=== PATIENT | male | born 1995 | race African-American/Black ===

== ENCOUNTER 2024-06-18 17:22 | Inpatient (IN) | payer OTHER, SELFPAY ==
--- NOTE | ~2024-06-18 | US_ITS ---
Limited Abdominal Sonogram: Real-time sonographic imaging of the right upper quadrant was performed. Clinical History: Right upper quadrant pain Findings: The liver appears normal with no evidence of mass lesion or bile duct dilatation. Main por jl vein demonstrates normal direction of flow. The gallbladder is well distended, and appears normal with no evidence of gallstone or wall thickening. The common bile duct measures 7 mm. The visualize d pancreas, aorta, and IVC are unremarkable. Impression: No significant abnormality seen. Reviewed, dictated and finalized at location M. Impression: No significant abnormality seen.
[2024-06-18 18:10] VITALS: BP 135/103; PULSE 79; RESP 18; TEMP 36.9; O2SAT 98
[2024-06-19] VITALS (8 sets, daily range): BP systolic 148–182; BP diastolic 92–126; PULSE 64–79; RESP 14–18; TEMP 36.6–36.9; O2SAT 97–100
--- NOTE | 2024-06-19 01:15 | ED.ABDPAIN ---
HPI - Abdominal Pain General Chief Complaint: Abdominal Pain Stated Complaint: abd pain Time Seen by Provider: 06/19/24 01:10 Source: patient Mode of arrival: ambulatory Limitations: no limitations History of Present Illness HPI narrative: Patient presents with epigastric abdominal pain. States it feels like his previous episodes of pancreatitis which is what he is concerned for. Had previously drank alcohol heavily which had triggered episodes before. Had reduced consumption but recently some family stressors so he drank a few beers and a fifth of liquor. No prior complications such as abscess or fistula. Still has his gallbladder. Is also having nausea, 2 episodes of non bloody emesis. LBM was Thursday, constipated producing circular balls of stool but denies diarrhea or bloody stool. Last oral intake was spaghetti; he says red sauce has also triggered / exacerbated his pancreatitis before. No fevers. History of HTN. Feels his sinuses might be acting up as well. Related Data Home Medications Medication Instructions Recorded Confirmed chlordiazepoxide HCl 10 mg capsule 10 mg PO Q6H PRN Withdrawal 06/19/24 06/19/24 Symptoms omeprazole 20 mg capsule,delayed 20 mg PO BID 06/19/24 06/19/24 release ondansetron 4 mg disintegrating 4 mg translingual Q4H 06/19/24 06/19/24 tablet thiamine HCl (vitamin B1) 100 mg 100 mg PO DAILY 06/19/24 06/19/24 tablet (Vitamin B-1) Allergies Allergy/AdvReac Type Severity Reaction Status Date / Time No Known Allergies Allergy Verified 06/19/24 02:27 [facility] Past Medical History Medical History (Updated 06/19/24 @ 17:44 by Gloria Quigley APRN) Alcohol abuse Hypertension Pancreatitis Social History Social History (Updated 06/19/24 @ 18:01 by Gloria Quigley APRN) Social History: the patient is currently homeless living house to house. Both his mother and father are still living. He is unsure of their medical conditions. His father is currently incarcerated. The patient has 5 siblings. One brother has pancreatitis. The patient does not have any children. He is currently unemployed. Smoking status: Current every day smoker Tobacco type: cigarettes and cigars Additional smoking assessment comments: 6 black and mild per day Alcohol intake: current Drinks per week: 2 Substance use type: does not use Do You Feel Safe in your Home?: Yes Lack of Transportation: YES Lack of Food: Sometimes True Current Housing: I Do Not Have Housing Concerned About Future Housing: YES Difficulty Paying Gas/Electric Bills: YES Difficulty Paying for Meds: YES Currently Unemployed: YES Education: High School Diploma/GED Difficulty w/ Childcare or Family Care: No Living arrangements: homeless Occupation/Education: unemployed Spiritual care concerns: No Exam Narrative: GENERAL: Well-appearing, well-nourished, and in no acute distress. HEAD: Normocephalic, atraumatic. EYES: Non injected, non icteric ENT: Nares clear, no rhinorrhea or epistaxis. NECK: Supple. CHEST: Speaking in full sentences. No respiratory distress. HEART: Regular rate and rhythm. . ABDOMEN: Soft, nondistended. mild epigastric TTP without guarding or rigidity. Not periotoneal. EXTREMITIES: Normal range of motion. No lower extremity edema. SKIN: Warm, dry, no rash. NEURO: No focal deficits. Alert and oriented x3. PSYCH: Normal mood and affect. Course Vital Signs Vital signs: Vital Signs Temperature 98.5 F 06/18/24 18:10 Pulse Rate 79 06/18/24 18:10 Respiratory Rate 18 06/18/24 18:10 Blood Pressure 135/103 H 06/18/24 18:10 Pulse Oximetry 98 06/18/24 18:10 Temperature 97.8 F 06/21/24 05:18 Pulse Rate 90 06/21/24 05:18 Respiratory Rate 18 06/21/24 05:18 Blood Pressure 145/90 H 06/21/24 05:18 Pulse Oximetry 100 06/21/24 05:18 Oxygen Delivery Room Air 06/20/24 20:00 MDM - Abdominal Pain MDM Narrative Medical decision
[2024-06-19 02:19] LABS: Basophils Percent Auto 0.6 % (0.2-1.2); Eosinophils Absolute Auto 0.1 K/mm3 (0-0.3); Hematocrit 45.1 % (42.0-52.0); Immature Granulocyte Absolute 0.01 K/mm3 (0.00-0.031); Immature Granulocyte Percent A 0.2 % (0-0.5); Lymphocytes Absolute Auto 1.72 K/mm3 (0.9-3.2); Lymphocytes Percent Auto 33.4 % (18.3-44.2); Mean Corpuscular HGB Conc 35.5 g/dl (32-36); Mean Corpuscular Hemoglobin 34.4 pg (26-34); Mean Platelet Volume 10.2 fl (7.4-10.4); Monocytes Absolute Auto 0.5 K/mm3 (0.1-0.6); Monocytes Percent Auto 8.9 % (2.6-8.5); Neutrophils Absolute Auto 2.9 K/mm3 (1.3-6.7); Neutrophils Percent Auto 55.9 % (45.5-73.1); Platelet Count Result 195 k/mm3 (150-375); Red Blood Count 4.65 M/mm3 (4.6-6.20); Red Cell Distribution Width 13.6 % (11.5-14.5); White Blood Count 5.2 K/mm3 (4.5-10.0)
[2024-06-19] MEDS: SODIUM CHLORIDE 0.9% IV 1,000 ML 999 ML IV CONT ×2 (02:28→04:13)
[2024-06-19] MEDS: ONDANSETRON INJ 4 MG/2 ML VIAL IV PUSH ×3 (02:28→20:15)
[2024-06-19] MEDS: MORPHINE SULFATE (*CRX) 4 MG/ML INJ IV PUSH ×4 (02:28→20:12)
[2024-06-19] MEDS: Please add drug allergy info to patient profile. 1 EACH XX (02:28)
[2024-06-19 02:32] LABS: Add Urine Microscopic? YES; Appearance Urine Clear (Clear); Bacteria Urine None Seen /hpf; Bilirubin Urine 2+ (Negative); Blood Urine Negative (Negative); Color Urine Dark Yellow (Yellow); Glucose Urine UA Negative (Negative); Ketones Urine 2+ mg/dL (Negative); Leukocyte Esterase Ur Trace LEU/UL (Negative); Need Manual Microscopic Reviewed; Nitrate Urine Negative (Negative); Protein Urine 2+ mg/dL (Negative); RBC Urine 0-2 /hpf (0-2); Specific Grav Ur 1.038 (1.001-1.035); Squamous Epithelial Cell Urine None Seen /hpf (Few); WBC Urine 0-5 /hpf (0-3)
[2024-06-19 02:39] LABS: Alanine Aminotransferase 14 U/L (6-50); Albumin Level 5.1 g/dL (3.5-5.1); Alkaline Phosphatase 89 U/L (38-126); Anion Gap 12 mmol/L (4-12); Aspartate Amino Transferase 25 U/L (17-59); Bilirubin,Total 1.1 mg/dL (0.2-1.3); Blood Urea Nitrogen 11 mg/dL (9-20); Carbon Dioxide 28 mmol/L (22-30); Chloride 95 mmol/L (98-107); Estimated CRCL calculation 93 ml/min; Estimated Glomerular Filt Rate > 60; Glucose 109 mg/dL (65-110); Lipase 1197 U/L (23-300); Potassium 3.6 mmol/L (3.4-5.0); Sodium 135 mmol/L (137-145)
[2024-06-19 02:56] LABS: Influenza A QL RT-PCR Negative (Negative); Influenza B QL RT-PCR Negative (Negative); RSV RNA, RT-PCR Negative (Negative); SARS-CoV-2 RNA PCR Negative (Negative)
--- NOTE | 2024-06-19 05:23 | PC.NURSE ---
This patient, [place] Villanueva, was admitted to 3 [facility] Surg Room 312-01. Patient/family oriented to hospital policies and general routines including ID bracelet, bed and alarms, visiting hours, pain management, procedures, bathroom and other care routines, personal items, smoking policy, room service/diet, and visiting hours. Information on how to activate the Rapid Response Team has been discussed. Patient/Family are encouraged to report perceived risks to care and to ask questions if they do not understand what they are told or what they should do.
[2024-06-19] MEDS: NICOTINE (*PBKC) 21 MG PATCH 1 PATCH TRANSDERM (06:15)
[2024-06-19] MEDS: HYDROmorphone HCL INJ (*CRX) 1 MG/ML SYR IV PUSH ×2 (06:18→09:35)
[2024-06-19] MEDS: LACTATED RINGERS 1,000 ML 125 ML IV CONT ×2 (06:21→16:16)
[2024-06-19] MEDS: diphenhydrAMINE HCl INJ 50 MG/ML VIAL 25 MG IV PUSH (09:35)
[2024-06-19] MEDS: hydrOXYzine HCL 25 MG TABLET PO (12:53)
[2024-06-19] MEDS: hydrALAZINE HCL 20 MG/ML VIAL 10 MG IV PUSH (17:15)
--- NOTE | 2024-06-19 17:40 | PM.IMHP ---
H&P: HPI History of Present Illness Date/Time: 06/19/24 17:40 Chief Complaint: Abdominal pain Narrative: This is a 28-year-old male with a past medical history significant for high blood pressure, alcohol abuse, and pancreatitis who presented to the emergency room with abdominal pain x2 days. Patient reports the following history. On Thursday night he had some big spaghetti and fried chicken and shortly after this started having abdominal pain. He had 1 episode of vomiting which he describes as clear emesis. Over the weekend his pain gradually worsened prompting him to come to the emergency room to be evaluated. He denies headache, dizziness, shortness of breath, chest pain, fever, chills, diarrhea, constipation, or difficulties urinating. He complains of nasal congestion with clear nasal drainage. He does report that he was diagnosed with pancreatitis 2 years ago and his most recent hospital admission for pancreatitis was this past April at [facility] in [place]. He states that he drinks alcohol occasionally with his drink of choice being vodka. in the emergency room labs were significant for normal white count 5.2, hemoglobin 16.0, sodium 135, potassium 3.6, chloride 95, normal LFTs and lipase 1197. UA showed dark clear urine with 2+ protein, 2+ ketones, 2+ bilirubin, trace leukocyte esterase. Rapid upper respiratory panel was negative. His vitals were fairly stable with the exception of high blood pressure. Admission blood pressure was 135/103. The patient received 2 L of IV fluid, Zofran, and IV pain medication before being admitted to the Medical-surgical floor for further workup of his abdominal pain. Review of Systems Review of Systems: All systems reviewed & are unremarkable except as noted in HPI and below PMFSH Past Medical History Medical History (Updated 06/19/24 @ 17:44 by Gloria Quigley APRN) Alcohol abuse Hypertension Pancreatitis Social History Social History (Updated 06/19/24 @ 18:01 by Gloria Quigley APRN) Social History: the patient is currently homeless living house to house. Both his mother and father are still living. He is unsure of their medical conditions. His father is currently incarcerated. The patient has 5 siblings. One brother has pancreatitis. The patient does not have any children. He is currently unemployed. Smoking status: Current every day smoker Tobacco type: cigarettes and cigars Additional smoking assessment comments: 6 black and mild per day Alcohol intake: current Drinks per week: 2 Substance use type: does not use Do You Feel Safe in your Home?: Yes Lack of Transportation: YES Lack of Food: Sometimes True Current Housing: I Do Not Have Housing Concerned About Future Housing: YES Difficulty Paying Gas/Electric Bills: YES Difficulty Paying for Meds: YES Currently Unemployed: YES Education: High School Diploma/GED Difficulty w/ Childcare or Family Care: No Living arrangements: homeless Occupation/Education: unemployed Spiritual care concerns: No Meds Home Medications and Allergies Home Medications Medication Instructions Recorded Confirmed Type chlordiazepoxide HCl 10 mg capsule 10 mg PO Q6H PRN Withdrawal 06/19/24 06/19/24 History Symptoms omeprazole 20 mg capsule,delayed 20 mg PO BID 06/19/24 06/19/24 History release ondansetron 4 mg disintegrating 4 mg translingual Q4H 06/19/24 06/19/24 History tablet thiamine HCl (vitamin B1) 100 mg 100 mg PO DAILY 06/19/24 06/19/24 History tablet (Vitamin B-1) Allergies Allergy/AdvReac Type Severity Reaction Status Date / Time No Known Allergies Allergy Verified 06/19/24 02:27 Vital Signs Vital Signs - 24 hr 06/18/24 18:10 06/19/24 02:32 06/19/24 03:32 Temperature 98.5 F Pulse Rate 79 78 65 Respiratory Rate 18 14 15 Blood Pressure 135/103 H 158/120 H 170/126 H Pulse Oximetry 98 97 100 Oxygen Delivery 06/19
[2024-06-19] MEDS: amLODIPine BESYLATE 10 MG TABLET PO (18:00)
[2024-06-19 20:48] LABS: Amphetamine Screen Urine Negative (Negative); Barbiturate Screen Urine Negative (Negative); Benzodiazepines Screen Urine Negative (Negative); Cannabinoid Screen Urine Negative (Negative); Cocaine Screen Urine Negative (Negative); Methadone Screen Urine Negative (Negative); Opiate Screen Urine Positive (Negative); Phencyclidine Screen Urine Negative (Negative)
[2024-06-20] MEDS: LACTATED RINGERS 1,000 ML 125 ML IV CONT ×2 (00:16→09:36)
[2024-06-20] MEDS: MORPHINE SULFATE (*CRX) 4 MG/ML INJ IV PUSH ×5 (00:27→21:05)
[2024-06-20 06:00] VITALS: BP 150/96; PULSE 71; RESP 16; TEMP 36.8; O2SAT 100
[2024-06-20 07:51] LABS: Prothrombin Time 13.3 Seconds (11.1-14.7)
[2024-06-20 07:52] LABS: Partial Thromboplastin Time 32.4 Seconds (22.3-36.8)
[2024-06-20 07:54] LABS: Basophils Percent Auto 0.4 % (0.2-1.2); Eosinophils Absolute Auto 0.1 K/mm3 (0-0.3); Eosinophils Percent Auto 2.3 % (0-4.4); Hematocrit 47.8 % (42.0-52.0); Hemoglobin 16.4 g/dL (14.0-18.0); Immature Granulocyte Absolute 0.01 K/mm3 (0.00-0.031); Immature Granulocyte Percent A 0.2 % (0-0.5); Lymphocytes Absolute Auto 2.02 K/mm3 (0.9-3.2); Lymphocytes Percent Auto 42.6 % (18.3-44.2); Mean Corpuscular HGB Conc 34.3 g/dl (32-36); Mean Corpuscular Hemoglobin 34.2 pg (26-34); Mean Corpuscular Volume 99.6 fl (80-100); Mean Platelet Volume 11.2 fl (7.4-10.4); Monocytes Absolute Auto 0.3 K/mm3 (0.1-0.6); Monocytes Percent Auto 5.3 % (2.6-8.5); Neutrophils Absolute Auto 2.3 K/mm3 (1.3-6.7); Neutrophils Percent Auto 49.2 % (45.5-73.1); Platelet Count Result 178 k/mm3 (150-375); Red Cell Distribution Width 13.5 % (11.5-14.5); White Blood Count 4.7 K/mm3 (4.5-10.0)
[2024-06-20 08:00] VITALS: BP 127/90; PULSE 85; RESP 16; O2SAT 100
--- NOTE | 2024-06-20 08:26 | PM.IMPN ---
Progress Note: A&P Assessment and Plan (1) Pancreatitis: Code(s): K85.90 - Acute pancreatitis without necrosis or infection, unspecified Status: Acute Assessment and Plan: patient has abdominal pain with intermittent nausea. Concerns for pancreatitis versus cholecystitis versus gastritis versus PUD versus gastroenteritis. Lipase elevated. Trend. patient is on IV fluids at LR 125---stop fluids and advance his diet. pain medication with morphine versus Dilaudid. he was having severe itching likely from the Dilaudid As it started after receiving a dose. IV Benadryl p.r.n. q.6 as needed p.o. Atarax q.6 as needed patient has right upper quadrant pain with jaundiced sclera and bilirubin present on UA. Right upper quadrant was normal CIWA ordered, seizure precaution, p.r.n. Ativan for CIWA 8-10 (2) Hypertension: Code(s): I10 - Essential (primary) hypertension Status: Acute Assessment and Plan: patient was given a 1 time dose of hydralazine 10 mg IV push. He states he used to be on lisinopril and then the medication was changed. He is unsure what the medication is. He says he never picked it up from the pharmacy Hydralazine 10 mg p.r.n. for systolic greater than 170 start amlodipine 10 mg daily blood pressure monitoring will refer patient to clinic in [place] as they provide resources for unemployed and uninsured. Plan DVT prophylaxis: Not applicable Glycemic control: not applicable Code Status: full code Disposition: 28-year-old male with a history of alcohol pancreatitis who presents with right upper quadrant right lower quadrant abdominal pain. Lipase is elevated But he also has jaundice on exam with bilirubin in his urine. Right upper quadrant ultrasound has been ordered for tomorrow. IV fluids and IV pain medication as needed. Counseled on alcohol cessation. Medication reconciliation obtained via the following: Nurse completed on admission The file time of this note does not necessarily represent the time the patient was seen. Subjective Date/time seen: 06/20/24 08:26 Interval history: This is a 28-year-old male with a past medical history significant for high blood pressure, alcohol abuse, and pancreatitis who presented to the emergency room with abdominal pain x2 days. 06/20: No acute events overnight. His itching is resolved and his abdominal pain is improving. Lipase is downtrending. Will stop IV fluids and advance his diet. Review of Systems Review of Systems: All systems reviewed & are unremarkable except as noted in HPI and below Exam Narrative: General: resting in bed, appears uncomfortable, appears stated age. HEENT: normocephalic, atraumatic. Mucous membranes moist. EOMI, PERRLA, bilateral sclera jaundice, Neck supple without JVD, lymphadenopathy, or bruit. Respiratory: clear to auscultation bilaterally. No rales/rhonic/wheezes. Cardiovascular: Regular rate and rhythm, normal S1-S2 upon auscultation. No murmurs, rubs, or clicks. PMI is nondisplaced, capillary refill less than 3 second. Abdomen: Soft, round, no pulsatile masses, nondistended and moderate tenderness to right upper and right lower quadrant. No rebound, no guarding. No CVA tenderness, no hepatosplenomegaly. Bowel sounds present to all four quadrants. No high pitch or tinkling sounds, resonant to percussion. Extremities: No cyanosis, clubbing, or edema present. Pulses are palpable 2/2. Active ROM to all four extremities. Neuro: Alert and orientated x 4. PERRLA. Cranial nerves 2-12 intact without focal deficit. Skin: Warm, dry, and intact, without rash, erythema, or lesion. Lines: PIV Incisions: Psych: pleasant, cooperative, normal speech, normal affect, no hallucinations, no dysarthria Objective Data Vital Signs Vital Signs: Vital S
[2024-06-20 08:30] LABS: Alanine Aminotransferase 11 U/L (6-50); Albumin Level 4.9 g/dL (3.5-5.1); Alkaline Phosphatase 69 U/L (38-126); Anion Gap 12 mmol/L (4-12); Aspartate Amino Transferase 24 U/L (17-59); Bilirubin Indirect 0.7 mg/dL (0-1.1); Bilirubin,Total 0.9 mg/dL (0.2-1.3); Blood Urea Nitrogen 4 mg/dL (9-20); Calcium 9.6 mg/dL (8.4-10.2); Carbon Dioxide 29 mmol/L (22-30); Chloride 97 mmol/L (98-107); Estimated CRCL calculation 118 ml/min; Estimated Glomerular Filt Rate > 60; Glucose 105 mg/dL (65-110); Magnesium 1.9 mg/dL (1.6-2.3); Potassium 3.4 mmol/L (3.4-5.0); Sodium 138 mmol/L (137-145)
[2024-06-20] MEDS: NICOTINE (*PBKC) 21 MG PATCH 1 PATCH TRANSDERM (09:28)
[2024-06-20] MEDS: FOLIC ACID 1 MG/0.2 ML INJ IV PUSH (09:28)
[2024-06-20] MEDS: amLODIPine BESYLATE 10 MG TABLET PO (09:28)
[2024-06-20] MEDS: PANTOPRAZOLE SODIUM IV 40 MG VIAL IV PUSH (09:28)
[2024-06-20] MEDS: THIAMINE HCL 200 MG/2 ML VIAL 100 MG IV PUSH (09:28)
[2024-06-20 10:07] VITALS: O2SAT 93
[2024-06-20 10:07] LABS: Lipase 482 U/L (23-300)
[2024-06-20 10:39] VITALS: BMI 22.0
[2024-06-20 14:51] VITALS: BP 127/90; PULSE 85; RESP 16; TEMP 36.4; O2SAT 100
[2024-06-20 20:00] VITALS: PULSE 82; RESP 16; O2SAT 100
[2024-06-20 20:58] VITALS: BP 129/96; PULSE 82; RESP 16; TEMP 36.6; O2SAT 100
[2024-06-21] VITALS (7 sets, daily range): BP systolic 102–145; BP diastolic 45–96; PULSE 82–90; RESP 16–18; TEMP 36.6–37; O2SAT 100
[2024-06-21] MEDS: MORPHINE SULFATE (*CRX) 4 MG/ML INJ IV PUSH ×6 (00:44→22:25)
[2024-06-21 08:57] LABS: Basophils Percent Auto 0.4 % (0.2-1.2); Eosinophils Absolute Auto 0.1 K/mm3 (0-0.3); Eosinophils Percent Auto 2.7 % (0-4.4); Hematocrit 43.3 % (42.0-52.0); Immature Granulocyte Absolute 0.01 K/mm3 (0.00-0.031); Immature Granulocyte Percent A 0.2 % (0-0.5); Lymphocytes Absolute Auto 2.36 K/mm3 (0.9-3.2); Lymphocytes Percent Auto 48.2 % (18.3-44.2); Mean Corpuscular HGB Conc 34.6 g/dl (32-36); Mean Corpuscular Hemoglobin 34.6 pg (26-34); Mean Corpuscular Volume 99.8 fl (80-100); Mean Platelet Volume 11.2 fl (7.4-10.4); Monocytes Absolute Auto 0.4 K/mm3 (0.1-0.6); Monocytes Percent Auto 7.3 % (2.6-8.5); Neutrophils Percent Auto 41.2 % (45.5-73.1); Platelet Count Result 158 k/mm3 (150-375); Red Blood Count 4.34 M/mm3 (4.6-6.20); Red Cell Distribution Width 13.2 % (11.5-14.5); White Blood Count 4.9 K/mm3 (4.5-10.0)
[2024-06-21 09:21] LABS: Alanine Aminotransferase 10 U/L (6-50); Albumin Level 4.5 g/dL (3.5-5.1); Alkaline Phosphatase 61 U/L (38-126); Anion Gap 11 mmol/L (4-12); Aspartate Amino Transferase 23 U/L (17-59); Bilirubin,Total 0.5 mg/dL (0.2-1.3); Blood Urea Nitrogen 7 mg/dL (9-20); Calcium 9.4 mg/dL (8.4-10.2); Carbon Dioxide 30 mmol/L (22-30); Chloride 94 mmol/L (98-107); Estimated CRCL calculation 118 ml/min; Estimated Glomerular Filt Rate > 60; Glucose 91 mg/dL (65-110); Potassium 3.7 mmol/L (3.4-5.0); Sodium 135 mmol/L (137-145)
[2024-06-21] MEDS: amLODIPine BESYLATE 10 MG TABLET PO (09:23)
[2024-06-21] MEDS: THIAMINE HCL 200 MG/2 ML VIAL 100 MG IV PUSH (09:23)
[2024-06-21] MEDS: PANTOPRAZOLE SODIUM IV 40 MG VIAL IV PUSH (09:23)
[2024-06-21] MEDS: NICOTINE (*PBKC) 21 MG PATCH 1 PATCH TRANSDERM (09:24)
[2024-06-21] MEDS: FOLIC ACID 1 MG/0.2 ML INJ IV PUSH (09:24)
--- NOTE | 2024-06-21 14:46 | PM.IMPN ---
Progress Note: A&P Assessment and Plan (1) Pancreatitis: Code(s): K85.90 - Acute pancreatitis without necrosis or infection, unspecified Status: Acute Assessment and Plan: -Current evidence does not support Lipase Trend. -patient diet has been advanced from a low-fat diet to regular diet -continue the pain medication -CIWA score today 0 -if patient able to tolerate the food possibly discharge tomorrow (2) Hypertension: Code(s): I10 - Essential (primary) hypertension Status: Acute Assessment and Plan: patient was given a 1 time dose of hydralazine 10 mg IV push. He states he used to be on lisinopril and then the medication was changed. He is unsure what the medication is. He says he never picked it up from the pharmacy Hydralazine 10 mg p.r.n. for systolic greater than 170 start amlodipine 10 mg daily blood pressure monitoring will refer patient to clinic in [place] as they provide resources for unemployed and uninsured. Plan DVT prophylaxis: Not applicable Glycemic control: not applicable Code Status: full code Disposition: 28-year-old male with a history of alcohol pancreatitis who presents with right upper quadrant right lower quadrant abdominal pain. Lipase is elevated But he also has jaundice on exam with bilirubin in his urine. Right upper quadrant ultrasound has been ordered for tomorrow. IV fluids and IV pain medication as needed. Counseled on alcohol cessation. Medication reconciliation obtained via the following: Nurse completed on admission The file time of this note does not necessarily represent the time the patient was seen. Subjective Date/time seen: 06/21/24 14:46 Interval history: Patient was evaluated at the bedside. Patient is tolerating the reports of nausea vomiting or abdominal pain. The patient diet has been changed from low-fat diet to regular diet. Review of Systems Review of Systems: All systems reviewed & are unremarkable except as noted in HPI and below Exam Narrative: General: resting in bed, appears uncomfortable, appears stated age. HEENT: normocephalic, atraumatic. Mucous membranes moist. EOMI, PERRLA, bilateral sclera jaundice, Neck supple without JVD, lymphadenopathy, or bruit. Respiratory: clear to auscultation bilaterally. No rales/rhonic/wheezes. Cardiovascular: Regular rate and rhythm, normal S1-S2 upon auscultation. No murmurs, rubs, or clicks. PMI is nondisplaced, capillary refill less than 3 second. Abdomen: Soft, round, no pulsatile masses, nondistended and moderate tenderness to right upper and right lower quadrant. No rebound, no guarding. No CVA tenderness, no hepatosplenomegaly. Bowel sounds present to all four quadrants. No high pitch or tinkling sounds, resonant to percussion. Extremities: No cyanosis, clubbing, or edema present. Pulses are palpable 2/2. Active ROM to all four extremities. Neuro: Alert and orientated x 4. PERRLA. Cranial nerves 2-12 intact without focal deficit. Skin: Warm, dry, and intact, without rash, erythema, or lesion. Lines: PIV Incisions: Psych: pleasant, cooperative, normal speech, normal affect, no hallucinations, no dysarthria Objective Data Vital Signs Vital Signs: Vital Signs - 24 hr 06/20/24 14:51 06/20/24 20:58 06/20/24 20:00 Temperature 97.6 F 97.9 F Pulse Rate 85 82 82 Respiratory Rate 16 16 16 Blood Pressure 127/90 129/96 H Pulse Oximetry 100 100 100 Oxygen Delivery Room Air 06/21/24 05:18 06/21/24 08:00 06/21/24 08:00 Temperature 97.8 F Pulse Rate 90 Respiratory Rate 18 Blood Pressure 145/90 H 145/90 H Pulse Oximetry 100 Oxygen Delivery Room Air Intake/Output Intake/Output: Intake & Output 06/18/24 06/19/24 06/20/24 06/21/24 23:59 23:59 23:59 23:59 Intake Total 2120 3800 1060 Output Total 1500
[2024-06-22] VITALS: BP 131/96
[2024-06-22] MEDS: MORPHINE SULFATE (*CRX) 4 MG/ML INJ IV PUSH ×3 (02:22→10:07)
[2024-06-22 03:30] VITALS: BP 131/96
[2024-06-22 05:49] VITALS: BP 115/84; PULSE 77; RESP 16; TEMP 36.7; O2SAT 100
[2024-06-22 06:41] LABS: Basophils Percent Auto 0.4 % (0.2-1.2); Eosinophils Absolute Auto 0.2 K/mm3 (0-0.3); Hemoglobin 14.6 g/dL (14.0-18.0); Immature Granulocyte Absolute 0.01 K/mm3 (0.00-0.031); Immature Granulocyte Percent A 0.2 % (0-0.5); Lymphocytes Absolute Auto 2.34 K/mm3 (0.9-3.2); Mean Corpuscular HGB Conc 34.8 g/dl (32-36); Mean Corpuscular Hemoglobin 34.5 pg (26-34); Mean Corpuscular Volume 99.3 fl (80-100); Mean Platelet Volume 11.4 fl (7.4-10.4); Monocytes Absolute Auto 0.4 K/mm3 (0.1-0.6); Neutrophils Absolute Auto 2.8 K/mm3 (1.3-6.7); Neutrophils Percent Auto 48.4 % (45.5-73.1); Platelet Count Result 150 k/mm3 (150-375); Red Blood Count 4.23 M/mm3 (4.6-6.20); Red Cell Distribution Width 13.4 % (11.5-14.5); White Blood Count 5.7 K/mm3 (4.5-10.0)
[2024-06-22 06:46] LABS: Alanine Aminotransferase 12 U/L (6-50); Albumin Level 4.4 g/dL (3.5-5.1); Alkaline Phosphatase 63 U/L (38-126); Anion Gap 11 mmol/L (4-12); Aspartate Amino Transferase 28 U/L (17-59); Bilirubin,Total 0.6 mg/dL (0.2-1.3); Blood Urea Nitrogen 10 mg/dL (9-20); Calcium 9.4 mg/dL (8.4-10.2); Carbon Dioxide 27 mmol/L (22-30); Chloride 96 mmol/L (98-107); Estimated CRCL calculation 104 ml/min; Estimated Glomerular Filt Rate > 60; Glucose 99 mg/dL (65-110); Potassium 3.6 mmol/L (3.4-5.0); Sodium 134 mmol/L (137-145)
[2024-06-22 08:00] VITALS: PULSE 77; RESP 16; O2SAT 100
[2024-06-22] MEDS: amLODIPine BESYLATE 10 MG TABLET PO (09:56)
[2024-06-22] MEDS: FOLIC ACID 1 MG/0.2 ML INJ IV PUSH (09:56)
[2024-06-22] MEDS: THIAMINE HCL 200 MG/2 ML VIAL 100 MG IV PUSH (09:56)
[2024-06-22] MEDS: NICOTINE (*PBKC) 21 MG PATCH 1 PATCH TRANSDERM (09:56)
[2024-06-22] MEDS: PANTOPRAZOLE SODIUM IV 40 MG VIAL IV PUSH (09:56)
--- NOTE | 2024-06-22 15:50 | PM.DS ---
DS: Admitting Diagnosis Discharge Date 06/22/24 Admitting Diagnosis Pancreatitis DS: Discharge Diagnosis Discharge Diagnosis (1) Pancreatitis: Code(s): K85.90 - Acute pancreatitis without necrosis or infection, unspecified Status: Acute Assessment and Plan: -Current evidence does not support Lipase Trend. -patient diet has been advanced from a low-fat diet to regular diet -continue the pain medication -CIWA score today 0 -if patient able to tolerate the food (2) Hypertension: Code(s): I10 - Essential (primary) hypertension Status: Acute Assessment and Plan: patient was given a 1 time dose of hydralazine 10 mg IV push. He states he used to be on lisinopril and then the medication was changed. He is unsure what the medication is. He says he never picked it up from the pharmacy Hydralazine 10 mg p.r.n. for systolic greater than 170 start amlodipine 10 mg daily blood pressure monitoring will refer patient to clinic in [place] as they provide resources for unemployed and uninsured. Plan DVT prophylaxis: Not applicable Glycemic control: not applicable Code Status: full code Disposition: 28-year-old male with a history of alcohol pancreatitis who presents with right upper quadrant right lower quadrant abdominal pain. Lipase is elevated But he also has jaundice on exam with bilirubin in his urine. Right upper quadrant ultrasound has been ordered for tomorrow. IV fluids and IV pain medication as needed. Counseled on alcohol cessation. Medication reconciliation obtained via the following: Nurse completed on admission The file time of this note does not necessarily represent the time the patient was seen. DS: Summary Hospital Course Hospital Course: This is a 28-year-old male with a past medical history significant for high blood pressure, alcohol abuse, and pancreatitis who presented to the emergency room with abdominal pain x2 days. Patient reports the following history. On Thursday night he had some big spaghetti and fried chicken and shortly after this started having abdominal pain. He had 1 episode of vomiting which he describes as clear emesis. Over the weekend his pain gradually worsened prompting him to come to the emergency room to be evaluated. He denies headache, dizziness, shortness of breath, chest pain, fever, chills, diarrhea, constipation, or difficulties urinating. He complains of nasal congestion with clear nasal drainage. He does report that he was diagnosed with pancreatitis 2 years ago and his most recent hospital admission for pancreatitis was this past April at [facility] in [place]. He states that he drinks alcohol occasionally with his drink of choice being vodka. in the emergency room labs were significant for normal white count 5.2, hemoglobin 16.0, sodium 135, potassium 3.6, chloride 95, normal LFTs and lipase 1197. UA showed dark clear urine with 2+ protein, 2+ ketones, 2+ bilirubin, trace leukocyte esterase. Rapid upper respiratory panel was negative. Patient was started on clear liquid diet and and advanced his diet. Patient denies that today no vomiting abdominal pain. Recommend to follow-up with the PCP in a week. Time Spent with Patient Time attestation: Total time spent providing and/or coordinating discharge services: Exam Narrative: General: resting in bed, appears uncomfortable, appears stated age. HEENT: normocephalic, atraumatic. Mucous membranes moist. EOMI, PERRLA, bilateral sclera jaundice, Neck supple without JVD, lymphadenopathy, or bruit. Respiratory: clear to auscultation bilaterally. No rales/rhonic/wheezes. Cardiovascular: Regular rate and rhythm, normal S1-S2 upon auscultation. No murmurs, rubs, or clicks. PMI is nondisplaced, capillary refill less than 3 second. Abdomen: So
== END 2024-06-22 15:45 | disposition home or self-care (01) | DRG 282 ==
LOC: ANHED 06-19 05:10 → ANH3MEDSUR 06-19 05:13
PROVIDERS: Nurse Practitioner Acute Care; Admitting Provider Internal Medicine; Emergency Provider Student in an Organized Health Care Education/Training Program; Visit Provider General Practice
DX: K85.90 Acute pancreatitis without necrosis or infection, unspecified (principal); I10 Essential (primary) hypertension; L29.8 Other pruritus; T40.2X5A Adverse effect of other opioids, initial encounter; R17 Unspecified jaundice; F10.10 Alcohol abuse, uncomplicated; F17.210 Nicotine dependence, cigarettes, uncomplicated; Z20.822 Contact with and (suspected) exposure to COVID-19
CPT/HCPCS: 36415; 76705; 80053; 80307; 81001; 82248; 83690; 83735; 85025; 85610; 85730; 87637; 96361; 96374; 96375; 96376; 99285; A9270; G0378; G0379; J0360; J1170; J1200; J2270; J2405; J2470; J3411; J7030; J7120